=== PATIENT | female | born 1990 | race Hispanic/Latino ===

== ENCOUNTER 2017-10-15 18:11 | Emergency (ER) | payer SELFPAY ==
[2017-10-15] MEDS ORDERED: ACETAMINOPHEN EXTRA STRENGTH 500 MG TABLET ONE (18:19)
[2017-10-15 18:31] LABS: APPEARANCE,URINE Cloudy (CLEAR); BILIRUBIN,URINE Small (NEGATIVE); COLOR,URINE Dark Yellow (YELLOW); GLUCOSE, URINE (UA) Negative (NEGATIVE); KETONES,URINE >=80 mg/dL (NEGATIVE); LEUKOCYTE ESTERASE ,URINE Moderate (NEGATIVE); NITRATE,URINE Positive (NEGATIVE); OCCULT BLOOD,URINE Small (NEGATIVE); PH,URINE 6.5 (5.0-8.0); PROTEIN,URINE POS 1+ (NEGATIVE)
[2017-10-15 18:43] LABS: BACTERIA,URINE Few /HPF (None Seen); SQUAMOUS EPITHELIAL CELL,UR 30-50 /HPF (0-2); WBC,URINE 26-50 /HPF (0-1)
[2017-10-15 18:50] LABS: RAPID GROUP A STREP NEGATIVE (NEGATIVE)
[2017-10-15] MEDS ORDERED: LIDOCAINE HCL-MPF 1% 2ML VIAL ONE (18:57)
[2017-10-15] MEDS ORDERED: CEFTRIAXONE SODIUM 1 GM ONE (18:57)
== END 2017-10-15 19:32 | disposition home or self-care (01) ==
LOC: EDH 18:11
DX: N39.0 Urinary tract infection, site not specified (principal); J02.9 Acute pharyngitis, unspecified; R50.81 Fever presenting with conditions classified elsewhere
CPT/HCPCS: 81001; 81025; 87088; 87186; 87804 ×2; 87880; 96372; 99284; J0696; J3490

== ENCOUNTER 2018-09-09 12:43 | Emergency (ER) | payer BC, OTHER ==
[2018-09-09 13:55] LABS: BILIRUBIN,URINE Negative (NEGATIVE); COLOR,URINE Yellow (YELLOW); GLUCOSE, URINE (UA) Negative (NEGATIVE); KETONES,URINE Negative (NEGATIVE); LEUKOCYTE ESTERASE ,URINE Moderate (NEGATIVE); NITRATE,URINE Negative (NEGATIVE); OCCULT BLOOD,URINE Small (NEGATIVE); PROTEIN,URINE POS 1+ (NEGATIVE)
[2018-09-09 13:57] LABS: APPEARANCE,URINE SLIGHTLY CLOUDY (CLEAR)
[2018-09-09 13:58] LABS: HCG,QUAL RESULT POSITIVE (NEGATIVE)
[2018-09-09] MEDS ORDERED: SODIUM CHLORIDE 0.9% 1000ML 1,000 ML IV ONE (14:02)
[2018-09-09 14:14] LABS: BASOPHILS % (AUTO) 0.3 % (0.0-5.0); EOSINOPHILS % (AUTO) 0.6 % (0.0-8.0); MEAN CORPUSCULAR HGB CONC 34.8 g/dL (32.0-36.0); MEAN CORPUSCULAR VOLUME 89.2 fL (79-99); MONOCYTES % (AUTO) 7.6 % (3.0-13.0); NEUTROPHILS % (AUTO) 69.5 % (40.0-77.0); PLATELET COUNT (AUTO) 317 K/uL (130-400); RED BLOOD CELL COUNT(AUTO) 4.59 MIL/uL (4.00-5.50); RED CELL DISTRIBUTION WIDTH 13.4 % (11.0-15.5); WHITE BLOOD COUNT (AUTO) 10.3 K/uL (4.8-10.8)
[2018-09-09] MEDS ORDERED: ACETAMINOPHEN 325 MG TAB ONE (14:18)
[2018-09-09 14:33] LABS: BACTERIA,URINE Few /HPF (None Seen)
[2018-09-09 14:34] LABS: RBC,URINE 0-1 /HPF (0-1)
[2018-09-09 15:02] LABS: CREATININE 0.6 mg/dL (0.5-1.5); POTASSIUM 3.7 mmol/L (3.5-5.1)
[2018-09-09 15:13] LABS: ALBUMIN 3.6 g/dL (3.5-5.0); BILIRUBIN,TOTAL 0.3 mg/dL (0.2-1.0); TOTAL PROTEIN, SERUM 7.9 g/dL (6.0-8.3)
[2018-09-09] MEDS ORDERED: CEFTRIAXONE SODIUM 1 GM ONE (17:25)
== END 2018-09-09 17:43 | disposition home or self-care (01) ==
LOC: EDH 12:43
DX: O20.0 Threatened abortion (principal); O23.41 Unspecified infection of urinary tract in pregnancy, first trimester; M54.5 Low back pain; Z3A.01 Less than 8 weeks gestation of pregnancy
CPT/HCPCS: 36415; 76801; 80053; 81001; 81025; 84702; 85025; 87077; 87088; 87186; 96374; 99285; J0696; J7030

== ENCOUNTER 2019-02-05 19:06 | Observation (INO) | payer BC, MEDICAID ==
[~2019-02-05] VITALS: Ht 157.5 cm; Wt 80.3 kg
[2019-02-05] MEDS: DEXTROSE 5%-LACTATED RINGERS 1,000 ML IV SCH (20:07)
[2019-02-05] MEDS: ACETAMINOPHEN 325 MG TAB PO PRN (22:31)
[2019-02-06 00:15] VITALS: BP 106/60
[2019-02-06] MEDS ORDERED: ACET-66 PO (00:27)
[2019-02-06] MEDS ORDERED: PREN1TAB80 PO (00:27)
[2019-02-06] MEDS: DEXTROSE 5%-LACTATED RINGERS 1,000 ML IV SCH ×3 (02:44→18:48)
[2019-02-06 03:56] VITALS: BP 94/66
[2019-02-06] MEDS ORDERED: CEFTRIAXONE SODIUM 1 GM IVP SCH ×2 (04:30→10:45)
[2019-02-06] MEDS ORDERED: CEFTRIAXONE SODIUM 1 GM IVP ONE (04:30)
[2019-02-06] MEDS: ACETAMINOPHEN 325 MG TAB PO PRN ×2 (04:39→14:36)
[2019-02-06 06:59] LABS: BASOPHILS % (AUTO) 0.2 % (0.0-5.0); EOSINOPHILS % (AUTO) 0.2 % (0.0-8.0); HEMATOCRIT 36.1 % (36-48); LYMPHOCYTES % (AUTO) 7.9 % (21.0-51.0); MEAN CORPUSCULAR HEMOGLOBIN 29.7 pg (27.0-33.0); MEAN CORPUSCULAR HGB CONC 32.3 g/dL (32.0-36.0); MEAN CORPUSCULAR VOLUME 92.1 fL (79-99); NEUTROPHILS % (AUTO) 86.7 % (40.0-77.0); PLATELET COUNT (AUTO) 197 K/uL (130-400); RED BLOOD CELL COUNT(AUTO) 3.92 MIL/uL (4.00-5.50); RED CELL DISTRIBUTION WIDTH 13.8 % (11.0-15.5); WHITE BLOOD COUNT (AUTO) 11.3 K/uL (4.8-10.8)
[2019-02-06 07:42] VITALS: BP 90/63
--- NOTE | 2019-02-06 10:45 | NUR ---
ROUNDS DR. THOMAS ROUNDING ON PATIENT AT THIS TIME. NEW ORDERS RECEIVED.
[2019-02-06 12:10] VITALS: BP 106/69
[2019-02-06 16:43] VITALS: BP 100/53
[2019-02-06 19:18] VITALS: BP 89/55
[2019-02-07 00:24] VITALS: BP 118/62
[2019-02-07] MEDS: DEXTROSE 5%-LACTATED RINGERS 1,000 ML IV SCH (02:35)
[2019-02-07 03:30] VITALS: BP 87/48
[2019-02-07] MEDS ORDERED: CEFTRIAXONE SODIUM 1 GM IVP SCH (04:30)
[2019-02-07 07:50] VITALS: BP 95/57
--- NOTE | 2019-02-07 08:36 | NUR ---
MD DR. THOMAS ROUNDING ON PATIENT. PATIENT OKAY FOR DISCHARGE.
--- NOTE | 2019-02-07 10:30 | NUR ---
DISCHARGE PATIENT LEFT UNIT VIA WHEELCHAIR WITH BELONGINGS IN HAND ACCOMPANIED BY SIGNIFICANT OTHER. PERSONAL VEHICLE USED FOR TRANSPORTATION.
== END 2019-02-07 10:30 | disposition home or self-care (01) ==
LOC: LDH 19:06 → WSH 02-06 00:10
DX: O26.892 Other specified pregnancy related conditions, second trimester (principal); M54.9 Dorsalgia, unspecified; Z3A.21 21 weeks gestation of pregnancy
CPT/HCPCS: 36415 ×2; 76805; 85025; 87040 ×2; 96374; 96376; G0378 ×34; J0696 ×2; J3490; J7120; 96360; 96361

== ENCOUNTER 2019-05-13 06:12 | Inpatient (IN) | payer BC, MEDICAID ==
[~2019-05-13] VITALS: Ht 157.5 cm; Wt 81.6 kg
[~2019-05-13 06:12] MED LIST: ACET-66 PO; PREN1TAB80 PO
[2019-05-13] MEDS ORDERED: LACTATED RINGERS 1000ML 1,000 ML IV PRN (06:14)
[2019-05-13] MEDS ORDERED: AMPICILLIN 2GM+NS 100ML 100 ML IV STA (06:14)
[2019-05-13] MEDS ORDERED: OXYTOCIN-LR 20 UNITS/1000 ML 1,000 ML IV SCH (06:15)
[2019-05-13] MEDS ORDERED: OXYTOCIN 10 USP UNITS/ML 20 UNIT in LACTATED RINGERS 1000ML 1,000 ML IV SCH (06:15)
[2019-05-13 06:52] VITALS: BP 114/74
[2019-05-13] MEDS ORDERED: FLU VACC QS2019-20 36MOS UP/PF 60 MCG/0.5 ML ML IM SCH ×2 (07:00→07:15)
[2019-05-13 07:04] LABS: APPEARANCE,URINE TURBID (CLEAR); BILIRUBIN,URINE SMALL (NEGATIVE); COLOR,URINE YELLOW (YELLOW); GLUCOSE, URINE (UA) NEGATIVE (NEGATIVE); KETONES,URINE 5 mg/dL (NEGATIVE); LEUKOCYTE ESTERASE ,URINE MODERATE (NEGATIVE); NITRATE,URINE NEGATIVE (NEGATIVE); OCCULT BLOOD,URINE TRACE-INTACT (NEGATIVE); PH,URINE 5.5 (5.0-8.0); PROTEIN,URINE TRACE mg/dL (NEGATIVE); UROBILINOGEN,URINE 0.2 mg/dL (0.2-1.0)
[2019-05-13 07:04] LABS: HEMATOCRIT 38.8 % (36-48); MEAN CORPUSCULAR HEMOGLOBIN 27.4 pg (27.0-33.0); MEAN CORPUSCULAR HGB CONC 32.7 g/dL (32.0-36.0); MEAN CORPUSCULAR VOLUME 83.8 fL (79-99); PLATELET COUNT (AUTO) 270 K/uL (130-400); RED BLOOD CELL COUNT(AUTO) 4.63 MIL/uL (4.00-5.50); RED CELL DISTRIBUTION WIDTH 14.5 % (11.0-15.5); WHITE BLOOD COUNT (AUTO) 8.8 K/uL (4.8-10.8)
[2019-05-13 07:31] LABS: SQUAMOUS EPITHELIAL CELL,UR Moderate /HPF (0-2)
[2019-05-13 07:32] LABS: BACTERIA,URINE Moderate /HPF (None Seen)
[2019-05-13] MEDS ORDERED: LIDOCAINE HCL 1% 20 ML VIAL ONE (10:57)
[2019-05-13] MEDS: AMPICILLIN 1GM+NS 50ML 50 ML IV SCH ×2 (10:58→14:37)
[2019-05-13] MEDS ORDERED: PROMETHAZINE HCL 25 MG/ML 1ML AMPULE IM SCH (13:00)
[2019-05-13] MEDS ORDERED: MEPERIDINE-PF 50 MG/ML SYG IVP SCH (13:00)
[2019-05-13] MEDS ORDERED: EPHEDRINE SULFATE 50 MG/ML AMPULE IVP PRN (14:15)
[2019-05-13] MEDS ORDERED: NALOXONE HCL 0.4 MG/1 ML ML IV PRN (14:15)
[2019-05-13] MEDS ORDERED: ROPIVACAINE 0.2% 100ML VIAL 100 ML EP SCH (14:15)
[2019-05-13] MEDS ORDERED: LACTATED RINGERS 500 ML 500 ML IV PRN (14:15)
[2019-05-13] MEDS ORDERED: FENTANYL CITRATE PF 50 MCG/1 ML 2ML VIAL ONE (14:29)
[2019-05-13] MEDS ORDERED: ACETAMINOPHEN-CODEINE 300/30MG TAB PO PRN (17:45)
[2019-05-13] MEDS ORDERED: DIPH,PERTUSS(ACELL),TET VAC/PF 0.5 ML VIAL IM PRN (17:45)
[2019-05-13] MEDS ORDERED: LANOLIN 30GM OINTMENT TP PRN (17:45)
[2019-05-13] MEDS ORDERED: BENZOCAINE/LANOLIN/ALOE VERA 60 ML AEROSOL TP PRN (17:45)
[2019-05-13] MEDS ORDERED: ACETAMINOPHEN 325 MG TAB PO PRN (17:45)
[2019-05-13] MEDS ORDERED: IBUPROFEN 600 MG TABLET PO PRN (17:45)
[2019-05-13] MEDS ORDERED: WITCH HAZEL 1 PAD TP PRN (17:45)
[2019-05-13] MEDS ORDERED: MEASLES/MUMPS/RUBELLA VACCINE, LIVE 0.5 ML/VIAL SQ PRN (17:45)
[2019-05-13 20:09] VITALS: BP 108/68
[2019-05-13] MEDS: DOCUSATE SODIUM 100 MG CAP PO SCH (21:46)
--- NOTE | 2019-05-13 22:00 | NUR ---
Explaining TDAP vaccine, consent read & signed, denies questions at present. States "it was recommended for me because of the whooping cough virus", responding with teaching. Pt voices understanding & agrees to vaccine administration. Addendum: 05/13/19 at 2224 by GORDO BURNS RN RN Amended: Links added.
--- NOTE | 2019-05-13 22:00 | NUR ---
Assisting up to bathroom, pt reports discomfort to perineum; offering po ibuprofen, pt agrees. Addendum: 05/13/19 at 2215 by GORDO BURNS RN RN Amended: Links added.
--- NOTE | 2019-05-13 22:05 | NUR ---
Assisting with holly pads in bathroom; explaining tucks pads to perineum desired effect & encouraging changing with each void; pt voices understanding & agrees to plan. Addendum: 05/13/19 at 2215 by GORDO BURNS RN RN Amended: Links added.
--- NOTE | 2019-05-13 22:15 | NUR ---
Explaining ibuprofen prn every 6 hours, encouraging to report discomfort as needed. Informing freq voiding assists with lower abd cramping & encouraging holly pad changes each time to bathroom. Informing of available prn meds other than ibuprofen to assist with discomfort. Pt & spouse voice understanding & agrees to teaching and pain management plan. Addendum: 05/13/19 at 2218 by GORDO BURNS RN RN Amended: Links added.
[2019-05-13 23:14] VITALS: BP 106/66
[2019-05-14 00:19] VITALS: BP 91/60
[2019-05-14] MEDS ORDERED: PREN-18 PO (00:38)
[2019-05-14 03:29] VITALS: BP 100/61
[2019-05-14 06:30] LABS: HEMATOCRIT 32.7 % (36-48); MEAN CORPUSCULAR HEMOGLOBIN 29.5 pg (27.0-33.0); MEAN CORPUSCULAR HGB CONC 34.6 g/dL (32.0-36.0); MEAN CORPUSCULAR VOLUME 85.2 fL (79-99); PLATELET COUNT (AUTO) 221 K/uL (130-400); RED BLOOD CELL COUNT(AUTO) 3.84 MIL/uL (4.00-5.50); RED CELL DISTRIBUTION WIDTH 14.9 % (11.0-15.5); WHITE BLOOD COUNT (AUTO) 11.9 K/uL (4.8-10.8)
[2019-05-14 07:34] VITALS: BP 131/71
[2019-05-14] MEDS: DOCUSATE SODIUM 100 MG CAP PO SCH (09:18)
[2019-05-14 11:35] VITALS: BP 116/73
[2019-05-14 16:45] VITALS: BP 102/72
--- NOTE | 2019-05-14 18:20 | NUR ---
DISCHARGE PT LEFT UNIT VIA WHEELCHAIR, WITH BABY IN ARMS, ACCOMPANIED BY SIGNIFICANT OTHER. DENIED PAIN AND HAD NO COMPLAINTS. TRANSPORTED BY PERSONAL VEHICLE.
[2019-05-15 06:10] LABS: HEPATITIS Bs ANTIGEN SCREEN P Negative (Negative)
== END 2019-05-14 18:20 | disposition home or self-care (01) | DRG 807 ==
LOC: LDH 06:12 → WSH 20:08
PROVIDERS: ADMIT Specialist; ATTEND Specialist
PROC: 10E0XZZ Delivery of Products of Conception, External Approach (ICD-10-PCS; principal; 2019-05-13)
PROC: 3E0R3BZ Introduction of Anesthetic Agent into Spinal Canal, Percutaneous Approach (ICD-10-PCS; 2019-05-13)
PROC: 00HU33Z Insertion of Infusion Device into Spinal Canal, Percutaneous Approach (ICD-10-PCS; 2019-05-13)
PROC: 3E0234Z Introduction of Serum, Toxoid and Vaccine into Muscle, Percutaneous Approach (ICD-10-PCS; 2019-05-13)
PROC: 3E0134Z Introduction of Serum, Toxoid and Vaccine into Subcutaneous Tissue, Percutaneous Approach (ICD-10-PCS; 2019-05-13)
DX: O69.81X0 Labor and delivery complicated by cord around neck, without compression, not applicable or unspecified (principal); Z37.0 Single live birth; O66.0 Obstructed labor due to shoulder dystocia; O24.429 Gestational diabetes mellitus in childbirth, unspecified control; Z3A.39 39 weeks gestation of pregnancy; Z23 Encounter for immunization
CPT/HCPCS: 36415; 81001; 82947; 85027; 86592; 86850; 86900; 86901; 87340; 90715; A4314; A4351; G0378; J0290; J2175; J2550; J2590; J3010; J7120

== ENCOUNTER 2022-09-20 05:35 | Emergency (ER) | payer BC, MEDICAID ==
[~2022-09-20] VITALS: Ht 157.5 cm; Wt 73.0 kg
[~2022-09-20 05:35] MED LIST changes: +PREN-18 PO
[2022-09-20 05:50] VITALS: BP 128/90
[2022-09-20 06:02] LABS: APPEARANCE,URINE CLOUDY (CLEAR); BILIRUBIN,URINE NEGATIVE (NEGATIVE); COLOR,URINE YELLOW (YELLOW); GLUCOSE, URINE (UA) 30 mg/dL (NEGATIVE); KETONES,URINE NEGATIVE (NEGATIVE); LEUKOCYTE ESTERASE ,URINE 250 Leu/uL (NEGATIVE); NITRATE,URINE NEGATIVE (NEGATIVE); OCCULT BLOOD,URINE LARGE (NEGATIVE); PH,URINE 5.5 (5.0-8.0); PROTEIN,URINE 20 mg/dL (NEGATIVE); UROBILINOGEN,URINE 0.2 mg/dL (0.2-1.0)
[2022-09-20 06:14] LABS: BASOPHILS % (AUTO) 0.3 % (0.0-5.0); EOSINOPHILS % (AUTO) 1.1 % (0.0-8.0); HEMATOCRIT 39.4 % (36-48); LYMPHOCYTES % (AUTO) 38.4 % (21.0-51.0); MEAN CORPUSCULAR HEMOGLOBIN 29.5 pg (27.0-33.0); MEAN CORPUSCULAR HGB CONC 34.3 g/dL (32.0-36.0); MEAN CORPUSCULAR VOLUME 86.2 fL (79-99); MONOCYTES % (AUTO) 5.4 % (3.0-13.0); NEUTROPHILS % (AUTO) 54.5 % (40.0-77.0); PLATELET COUNT (AUTO) 322 K/uL (130-400); RED BLOOD CELL COUNT(AUTO) 4.57 MIL/uL (4.00-5.50); RED CELL DISTRIBUTION WIDTH 12.1 % (11.0-15.5); WHITE BLOOD COUNT (AUTO) 10.5 K/uL (4.8-10.8)
[2022-09-20 06:15] LABS: BACTERIA,URINE RARE /HPF (None Seen); MUCUS,URINE RARE LPF (None Seen); SQUAMOUS EPITHELIAL CELL,UR MANY /HPF (0-2)
[2022-09-20 06:25] LABS: CREATININE 0.5 mg/dL (0.5-1.5); POTASSIUM 3.7 mmol/L (3.5-5.1)
[2022-09-20 06:51] LABS: ALBUMIN 3.6 g/dL (3.5-5.0); TOTAL PROTEIN, SERUM 7.5 g/dL (6.0-8.3)
== END 2022-09-20 09:07 | disposition home or self-care (01) ==
LOC: EDH 05:35
DX: O20.9 Hemorrhage in early pregnancy, unspecified (principal); O26.891 Other specified pregnancy related conditions, first trimester; R10.30 Lower abdominal pain, unspecified; Z3A.09 9 weeks gestation of pregnancy; Z79.899 Other long term (current) drug therapy
CPT/HCPCS: 36415; 76801; 80053; 81001; 84702; 85025; 87088

== ENCOUNTER 2022-12-19 20:17 | Emergency (ER) | payer MEDICAID ==
[~2022-12-19] VITALS: Ht 157.5 cm; Wt 73.9 kg
[2022-12-19] MEDS ORDERED: 0.9%NACL 1000ML 1,000 ML IV ONE (21:00)
[2022-12-19] MEDS ORDERED: METOCLOPRAMIDE 10 MG/2 ML VIAL IVP ONE (21:00)
[2022-12-19] MEDS ORDERED: DIAZEPAM 5 MG/ML 2 ML SYG IVP ONE (21:00)
[2022-12-19] MEDS ORDERED: KETOROLAC 30MG VIAL (30MG/ML) IVP ONE (21:00)
[2022-12-19] MEDS ORDERED: FAMOTIDINE 20MG VIAL IV ONE (21:00)
[2022-12-19 23:01] VITALS: BP 118/71
[2022-12-19] MEDS ORDERED: POLY17PO4 PO (23:48)
[2022-12-19] MEDS ORDERED: CYCL10TA16 PO (23:48)
[2022-12-19] MEDS ORDERED: MELO-106 PO (23:48)
== END 2022-12-19 23:56 | disposition home or self-care (01) ==
LOC: EDH 20:17
DX: M54.50 Low back pain, unspecified (principal); M62.830 Muscle spasm of back; K80.20 Calculus of gallbladder without cholecystitis without obstruction; K59.00 Constipation, unspecified; Z79.899 Other long term (current) drug therapy; Z98.890 Other specified postprocedural states
CPT/HCPCS: 99284; 96374; 96375; 81025; 72110; 72170; 72220; J3360; J1885; J2765; S0028; J3490